=== PATIENT | male | born 1950 | race Caucasian/White ===

== ENCOUNTER 2017-07-22 07:30 | Inpatient (IN) ==
[2017-07-31 05:53] VITALS: BMI 32.2
[2017-07-31] MEDS ORDERED: ACETAMINOPHEN 500 MG TABLET PO ONE (06:00)
[2017-07-31] MEDS ORDERED: METOCLOPRAMIDE 10mg/2ml INJECTION IVP ONE (06:00)
[2017-07-31] MEDS ORDERED: DEXAMETHASONE 4 MG/ML INJECTION IVP ONE (06:00)
[2017-07-31] MEDS ORDERED: FAMOTIDINE PB 20 MG/50 ML BAG IV ONE (06:00)
[2017-07-31] MEDS ORDERED: TRANEXAMIC ACID 1,000 MG in NS 100 ML IV ONE ×2 (06:00→07:00)
[2017-07-31] MEDS ORDERED: ONDANSETRON 4 MG/2 ML INJECTION IVP ONE (06:00)
[2017-07-31] MEDS ORDERED: LIDOCAINE 1% (10mg/ml) 2mL INJ PF SDV ID ONE (06:00)
[2017-07-31] MEDS: LR 1,000 ML IV SCH ×2 (06:16→09:26)
[2017-07-31] MEDS: NOZIN NASAL SWAB NAS SCH ×6 (06:25→22:11)
[2017-07-31] MEDS ORDERED: PROPOFOL 0 MG/0 ML VIAL ONE (06:26)
[2017-07-31] MEDS ORDERED: PROPOFOL 500 MG/50 ML VIAL ONE ×3 (06:27→08:54)
[2017-07-31] MEDS ORDERED: BUPIVACAINE 0.75%/DEXTROSE 8.5% SPINAL 2 ML AMPULE IJ ONE (06:29)
[2017-07-31] MEDS ORDERED: EPHEDRINE 50mg/ml INJECTION ONE (06:29)
[2017-07-31] MEDS ORDERED: LIDOCAINE 1% (10mg/ml) 30ml SDV INJ ONE (06:29)
[2017-07-31] MEDS ORDERED: FentaNYL 250 MCG/5 ML INJECTION ONE (06:31)
[2017-07-31] MEDS ORDERED: DiphenhydrAMINE 50 MG/ML INJECTION ONE (06:31)
--- NOTE | 2017-07-31 06:47 | Anesthesia Preoperative Report ---
Anesthesia Preoperative Record - Date and Time Date: 07/31/17 Preoperative Diagnosis: Rt DENIS M16.11 NPO Since Date: 07/30/17 NPO Since Time: 23:00 Allergies/Adverse Reactions: Allergies Allergy/AdvReac Type Severity Reaction Status Date / Time No Known Allergies Allergy Verified 07/31/17 06:02 - Vital Signs Vital Signs: Temperature 98.4 F 07/31/17 05:51 Pulse Rate 58 L 07/31/17 05:51 Respiratory Rate 14 07/31/17 05:51 Blood Pressure 145/75 H 07/31/17 05:51 Pulse Oximetry 98 07/31/17 05:51 Height and Weight: Height 1.85 m Weight 110.9 kg Body Mass Index 32.2 - Medications Inpatient Medications: Current Medications Famotidine/Sodium Chloride (Pepcid Premix) 20 mg in 50 mls @ 100 mls/hr IV PREOP ONE Stop: 07/31/17 06:29 Epinephrine HCl 0.25 mg/Bupivacaine HCl 30 ml/ Sodium Chloride 60.25 mls @ 0 mls/hr OPSITE INTRAOP ONE; Per Protocol PRN Reason: Protocol Stop: 07/31/17 08:01 Tranexamic Acid 1,000 mg/ (Sodium Chloride) 110 mls @ 660 mls/hr IV INTRAOP ONE Stop: 07/31/17 07:09 Lactated Ringer's (Lactated Ringers) 1,000 mls @ 50 mls/hr IV .Q20H KENDRA Isopropyl Alcohol (Nozin Nasal Swab) 1 each XI Q1M KENDRA Stop: 07/31/17 13:03 Sodium Chloride (Iv Flush) 10 - 80 ml IV PRN PRN PRN Reason: Flushing Home Medications: Home Medications Medication Instructions Recorded Confirmed Type multivitamin tablet 1 tab PO DAILY tab 10/28/16 07/31/17 History Synthroid 175 mcg tablet 175 mcg PO QAM #90 tab NS 11/14/16 07/31/17 Rx Metoprolol Succinate [Toprol Xl] 50 mg PO DAILY 06/25/17 07/31/17 History Naproxen Sodium [Aleve] 220 mg PO DAILY PRN 06/25/17 07/31/17 History Turmeric Root Extract [Turmeric] 200 mg PO DAILY 06/25/17 07/31/17 History Tramadol [Ultram] 50 mg PO PRN PRN 07/31/17 07/31/17 History Is Patient on Beta Pramod?: Yes Beta Pramod Last Dose Date/Time: today, 05:00 - Medical History Respiratory: Reports: Sleep Apnea (uses CPAP machine) Cardiovascular: Reports: Congestive Heart Failure (per h&p), Hypertension, Valvular Heart Disease (MVP) DENIES: Myocardial Infarction Neuro/Musculoskeletal: Reports: Back Problems, Other (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) Renal/Endocrine: Reports: Thyroid Disease (Grave's disease; postablative hypothyroidism), Other (metabolic syndrome per h&p) DENIES: Diabetes Mellitus Type 1, Diabetes Mellitus Type 2 - Surgical History Respiratory Surgery/Treatments: Reports: CPAP Use Musculoskeletal Surgery/Tx: Reports: Orthopedic Surgery (IM nail LLE 2003), Other (removal distal screws 2003) Reproductive Surgery/Treatment: Reports: Other (left testicular cystectomy) Anesthesia Reactions: None Hx Family Anesthesia Reaction: No History of Motion Sickness: No - Social History Smoking Status: Never smoker Substance Use Type: does not use Alcohol Intake Frequency: does not drink - Pertinent Findings EKG: Sinus Rhythm - Physical Exam Respiratory Exam: Present: lungs clear Cardiovascular Exam: Present: regular rate and rhythm - Airway Assessment Mallampati Score: III TMD: 3 Fingerbreadths Neck Extension: fair Teeth: chipped teeth/crowns (right upper rear molar cracked per pt) Overall Assessment: may be difficult intubation - ASA ASA Score: 3 - Plan Anesthesia: Neuroaxial Regional/Trunk Block: Spinal - Discussion Discussion: Discussed risks/options/alternatives of anesthesia and questions answered. Patient consents. Nursing pain assessment noted. Present for Discussion: spouse Attestation Statement: Prior to the delivery of any anesthetic medication, I examined the patient, developed the plan, obtained the patient's consent and discussed the risk and benefits of the procedure with the patient/guardian.
[2017-07-31] MEDS ORDERED: KETAMINE 500 MG/10 ML INJECTION ONE (06:49)
[2017-07-31] MEDS ORDERED: VANCOMYCIN 1,000 MG INJECTION ONE (06:52)
[2017-07-31] MEDS ORDERED: CEFAZOLIN 1 G INJECTION IVP ONE (07:09)
[2017-07-31] MEDS ORDERED: MIDAZOLAM 2mg/2ml INJECTION ONE (07:30)
[2017-07-31] MEDS ORDERED: DEXAMETHASONE 4 MG/ML INJECTION ONE (08:00)
[2017-07-31] MEDS ORDERED: EPINEPHrine PF 0.25 MG, BUPIVACAINE 0.25% PF 30 ML in NS 30 ML OPSITE ONE (08:00)
[2017-07-31] MEDS ORDERED: ONDANSETRON 4 MG/2 ML INJECTION ONE (08:00)
[2017-07-31] MEDS ORDERED: HYDRALAZINE 20 MG/ML INJECTION ONE (08:20)
[2017-07-31] MEDS ORDERED: ROCURONIUM 50 MG/5 ML INJECTION IVP ONE (08:30)
[2017-07-31] MEDS ORDERED: VANCOMYCIN 1,000 MG INJECTION IAR ONE (09:22)
[2017-07-31] MEDS ORDERED: SUGAMMADEX 200mg/2ml INJECTION IVP ONE (09:23)
--- NOTE | 2017-07-31 09:33 | Operative Note ---
- Procedure Preoperative Diagnosis: Right hip primary degenerative joint disease Postoperative Diagnosis: Same as preoperative diagnosis. Surgeon: Teagan Roblero MD Process Planner: Jae Salazar Complications: None. Anesthesia: Spinal. Estimated Blood Loss: See Anesthesia Record. Fluids: Please see Anesthesia Record. Description of Procedure: Mr. Ge and his right hip were identified and marked in the preoperative holding area. He was brought back to the operating suite and spinal anesthetic was administered. He was then placed in a lateral decubitus position with his right hip up. The right lower extremity was prepped and draped in my normal sterile fashion. Timeout was performed. The [employer] robotic arm was used to assist with the surgery. A pelvic array was placed into the iliac crest through three small incisions. A direct superior approach was utilized. An approximately 13 cm incision was made in the skin and dissection carried down to the muscle fascia which was then split in line with skin incision. The short external rotators were identified and tagged and detached. A capsulotomy was performed and the hip dislocated. As expected his hip was tightening a large osteophytes along the inferior femoral neck. A femoral neck osteotomy was performed at the pre-templated level measuring down from the femoral head 65 mm. The head was removed and acetabulum exposed. Labrum was removed. The acetabulum was then registered with the robot. The robotic arm was then used to ream with a 54 reamer. The robot then was again used to place a 54 Trident cup in 40 of tilt and 22 of anteversion. To ensure the cup was stable and agree with a pair of Chuck's and after a good shuck the cup did move. For this reason I reamed to 55 basket and the stomach placed 56 cup again at 40 of tilt and 20 of anteversion. I placed 1 screw in the superior posterior quadrant and it had excellent bite. A liner was then placed. The proximal femur was exposed and prepared with a cookie cutter followed by reaming and broaching to a size 6. We trialed with a standard head. After thorough irrigation a final Accolade 2 size 6 stem with 27 neck was placed. Leg length and offset were checked with the robot and were good but he was a touch tight. A final -2.5 ceramic 36 mm head was placed and the hip reduced. Betadine solution was used to irrigate throughout the case. It was followed by normal saline irrigation. Joint cocktail was injected throughout soft tissue. The capsulotomy was repaired with Ethibond. Short external rotators were also repaired with Ethibond. 1 g of vancomycin powder was placed into the wound. The muscle fascia was then repaired with #1 Vicryl. I then left my insurance assistant to close the subcutaneous tissue with 2-0 Vicryl followed by running 4-0 Monocryl skin followed by Dermabond and a sterile dressing. The patient with any placed back into supine position and taken to recovery room in the care of anesthesia.
[2017-07-31] MEDS ORDERED: PROPOFOL 20 ML ONE (09:39)
[2017-07-31] MEDS: HYDROMORPHONE 2 MG/ML INJECTION IVP PRN ×2 (10:57→11:19)
--- NOTE | 2017-07-31 12:00 | XRay Report ---
Indication: postoperative image PROCEDURE: XR pelvis w/ 1 view RT hip: Encounter: Initial Comparison: June 03, 2017 Findings: Postoperative changes of right total hip replacement are seen. There is expected postoperative subcutaneous gas. No evidence of hardware failure or acute fracture. No retained radiopaque surgical instruments or sponges seen. Impression: New right total hip prosthesis without evidence of immediate complication. .
[2017-07-31] MEDS ORDERED: SALINE FLUSH 10ml SYRINGE IV PRN (12:53)
[2017-07-31] MEDS ORDERED: NOZIN NASAL SWAB NAS ONE (13:04)
[2017-07-31] MEDS ORDERED: ONDANSETRON 4 MG/2 ML INJECTION IVP PRN (13:04)
[2017-07-31] MEDS ORDERED: DEXAMETHASONE 20 MG/5 ML INJECTION IVP ONE (13:04)
[2017-07-31] MEDS ORDERED: LORazepam 1 MG TABLET PO PRN (13:04)
[2017-07-31] MEDS ORDERED: DiphenhydrAMINE 25 MG CAPSULE PO PRN (13:04)
[2017-07-31] MEDS ORDERED: DiphenhydrAMINE 50 MG/ML INJECTION IVP PRN (13:04)
--- NOTE | 2017-07-31 13:09 | Anesthesia Postoperative Note ---
- Date and Time Date: 07/31/17 Time: 13:09 - Status Patient Participated in Evaluation: Patient Participated in Person Vital Signs: Temperature 97.4 F 07/31/17 10:02 Pulse Rate 72 07/31/17 12:40 Respiratory Rate 11 07/31/17 12:40 Blood Pressure 155/62 H 07/31/17 12:40 Pulse Oximetry 96 07/31/17 12:40 Respiratory Function: Airway Patent, Regular Respirations Cardiovascular Function: Regular Pulse Mental Status: Alert and Oriented Pain Intensity: 5 Hydration: IV Infusing Complications During Recover: None Apparent - Follow-Up Instructions Instructions: Per Surgeon
[2017-07-31] MEDS: NS 1,000 ML IV SCH (13:31)
[2017-07-31] MEDS: ACETAMINOPHEN 325 MG TABLET PO SCH ×3 (13:58→20:05)
[2017-07-31] MEDS: TRAMADOL 50 MG TABLET PO PRN ×2 (13:59→20:04)
[2017-07-31] MEDS: CEFAZOLIN 2 G in NS 100 ML IV SCH ×2 (15:01→22:13)
[2017-07-31] MEDS: NAPROXEN 220 MG TABLET PO SCH (17:32)
[2017-07-31] MEDS: ASPIRIN *EC* 81 MG TABLET PO SCH (20:05)
[2017-07-31] MEDS: DOCUSATE SODIUM 100 MG CAPSULE PO SCH (20:05)
[2017-07-31] MEDS ORDERED: SENNOSIDES 8.6 MG TABLET PO SCH (21:00)
[2017-08-01] MEDS ORDERED: FALL RISK - PHARMACY CONSULT MC ONE (00:10)
[2017-08-01] MEDS: NS 1,000 ML IV SCH ×2 (00:46→02:52)
[2017-08-01] MEDS: NOZIN NASAL SWAB NAS SCH (06:22)
[2017-08-01] MEDS ORDERED: LEVOTHYROXINE 175 MCG TABLET PO SCH (06:30)
[2017-08-01] MEDS: TRAMADOL 50 MG TABLET PO PRN (07:24)
[2017-08-01 07:29] VITALS: RESP 16
--- NOTE | 2017-08-01 07:49 | Orthopedic Progress Note ---
Date: Date: 08/01/17 Time: 744 Subjective/Severity of Illness: Aristeo is doing great. He has been up several times with good tolerance. Pain is minimal today. No CP, cough or SOA. Dressing is dry. Hgb 12.0 , VSS. Pt is expecting discharge later today after working with PT. Orthopedic Exam Vital signs: Temperature 97.0 F 08/01/17 07:31 Pulse Rate 65 08/01/17 07:31 Respiratory Rate 16 08/01/17 07:31 Blood Pressure 132/65 08/01/17 07:31 Pulse Oximetry 95 08/01/17 07:31 - Constitutional General Appearance: Present: alert, cooperative, no acute distress - Respiratory Exam Present: non-labored - Cardiovascular Exam Present: Regular Rate/Rhythm, pedal pulses intact - Extremities Exam Present: pulses intact. Absent: calf tenderness - Dressing Dressing: dry, intact, no drainage - Integumentary Exam Present: pink, warm, dry - Neurological Exam Present: no deficits - Psychiatric Exam Present: alert, normal affect - Labs Result Diagrams: 08/01/17 04:28 08/01/17 04:28 Abnormal lab results 08/01/17 08/01/17 Range/Units 04:28 04:28 Hgb 12.0 L (13.5-17.5) GM/DL Chloride 109 H (98-107) MEQ/L BUN 29.0 H (9-20) MG/DL Glucose 121 H (75-110) MG/DL Calculated Osmolality 282 H (261-280) MOSM/KG H & H 08/01/17 Range/Units 04:28 Hgb 12.0 L (13.5-17.5) GM/DL Orthopedic Assessment and Plan (1) Primary osteoarthritis of right hip Status: Acute Assessment and Plan: Aspirin protocol for VTE prophylaxis. SCD's and early mobilization for added DVT coverage. PT/OT services to improve independent function. Discharge Planning per Case Management. - Anticoagulation Therapy Anticoagulation: ASA 81 mg PO BID x6 weeks - Additional Diagnoses Other Diagnoses: ELIEZER. Pt has CPAP at home. Sats are stable. Hospital Course Summary Disclaimer: The visit summary below is not to be considered part of the above Progress Note.
--- NOTE | 2017-08-01 07:52 | Discharge Summary ---
Orthopedic Discharge Info Date of admission: 07/31/17 05:24 Anticipated date of discharge: 08/01/17 Primary care physician: Margaret Sousa MD Attending Physician: Evgeny Roblero MD Consults: 07/31/17 05:35 Consult to Anesthesiology [CONS] Routine Reason For Exam: Preoperative Assessment 07/31/17 13:04 Case Management Consult [CONS] Routine Reason For Exam: Discharge Planning DME-Walker [CONS] Routine Height: 6 ft 1 in Weight: 110.9 kg Total Joint Outpatient Therapy [CONS] Routine Comment: Remove dressing in 2 weeks - Discharge Diagnosis (1) Primary osteoarthritis of right hip Status: Acute - Procedures Procedures: Rt DENIS 07/31/17 - Laboratory Result Diagrams: 08/01/17 04:28 08/01/17 04:28 Laboratory: Abnormal lab results 08/01/17 08/01/17 Range/Units 04:28 04:28 Hgb 12.0 L (13.5-17.5) GM/DL Chloride 109 H (98-107) MEQ/L BUN 29.0 H (9-20) MG/DL Glucose 121 H (75-110) MG/DL Calculated Osmolality 282 H (261-280) MOSM/KG H & H 08/01/17 Range/Units 04:28 Hgb 12.0 L (13.5-17.5) GM/DL Orthopedic Discharge HPI - HPI Comments This patient was admitted for elective surgical tx of end stage degenerative joint disease that failed to respond to conservative treatment. Further details of this is found in the admission H&P. Orthopedic Hospital Course Hospital course: 08/01/17 07:49 After appropriate preoperative clearance and signing of operative consent, the patient was given IV antibiotics, according to orthopedic protocol. The patient was taken to the operating room and underwent elective right total hip arthroplasty on 07/31/17. Following surgery, antibiotics were discontinued less than 24 hours according to joint protocol. Aspirin was initiated and SCDs added for DVT prevention. The dressing was clean, dry, and intact. Pain control was obtained via multimodal approach. Bowel motivation addressed with scheduled and PRN medications. Early mobilization was initiated through PT services. Discharge arrangements made by a collaborative effort between the patient and Case Management. Pt did well. Hgb was 12.0 at discharge. BMP was normal. Afebrile and VSSKasandra Alberts will take Aspirin 81mg BID for 6 weeks for DVT protection. Plan f/u with PCP in a week after surgery for medical follow up. Follow-up is scheduled in 2-3 weeks in ortho clinic. Discharge instructions given by orthopedic providers and nursing staff at discharge. Discharge condition was good. Care extended to > 2 midnight stays?: No Discharge Plan - Med Rec/Dispo Referrals/Follow Up: Jae Salazar PA [Physician [employer]] - 08/22/17 9:45 am [place] Instructions: [facility] [place] Ortho Postop Instructions Additional Instructions: [facility] ON 08/04/2017 AT 9:00AM FOR PHYSICAL THERAPY EVAL. PLEASE COMPLETE THE PAPERWORK IN THE [facility] [place] FOLDER PRIOR TO THE APPOINTMENT. PHONE [phone] Prescriptions: New Acetaminophen [Tylenol] 650 mg PO QID tablet Aspirin *EC* [Ecotrin] 81 mg PO BID tablet Milk of Magnesia [Mom] 30 ml PO DAILY udc Naproxen [Aleve (Naproxen) 220 mg] 440 mg PO BIDWM tablet PEG 3350 17gm PACKET [Miralax] 17 gm PO DAILY packet Docusate Sodium [Colace] 100 mg PO BID capsule Tramadol [Ultram] 50 - 100 mg PO Q6H PRN #40 tablet PRN Reason: Pain Continue Metoprolol Succinate [Toprol Xl] 50 mg PO DAILY Turmeric Root Extract [Turmeric] 200 mg PO DAILY multivitamin tablet 1 tab PO DAILY tab Synthroid 175 mcg tablet 175 mcg PO QAM #90 tab NS Discontinued Naproxen Sodium [Aleve] 220 mg PO DAILY PRN PRN Reason: Pain Tramadol [Ultram] 50 mg PO PRN PRN PRN Reason: Pain - Disposition 01 Discharged Home, Self-Care - Dismissal Complete Discharge Instructions are:: Complete, Incomplete
[2017-08-01] MEDS: NAPROXEN 220 MG TABLET PO SCH (08:17)
[2017-08-01] MEDS: DOCUSATE SODIUM 100 MG CAPSULE PO SCH (08:37)
[2017-08-01] MEDS: ACETAMINOPHEN 325 MG TABLET PO SCH ×2 (08:38→13:58)
[2017-08-01] MEDS: ASPIRIN *EC* 81 MG TABLET PO SCH (08:38)
[2017-08-01] MEDS ORDERED: POLYETHYL GLYCOL 3350 17gm PACKET PO SCH (09:00)
[2017-08-01] MEDS ORDERED: SENNOSIDES 8.6 MG TABLET PO PRN (10:03)
[2017-08-01 11:45] VITALS: BP 127/57; PULSE 61; TEMP 98.2
[2017-08-01 13:43] VITALS: O2SAT 96
[2017-08-01] MEDS ORDERED: PNEUMOCOCCAL 13 VACCINE 0.5ml INJECTION IM ONE (13:59)
[2017-08-02] MEDS ORDERED: BISACODYL 10 MG SUPPOSITORY RECTALLY SCH (20:00)
== END 2017-08-01 14:30 | disposition home or self-care (01) | DRG 470 ==
LOC: NMC.PERIOP 07-31 05:24 → SRG 07-31 13:15
PROVIDERS: ADMIT Orthopaedic Surgery; ATTEND Orthopaedic Surgery